=== PATIENT | male | born 2000 | race Caucasian/White ===

== ENCOUNTER 2021-10-30 11:54 | Emergency (ER) | payer BC, SELFPAY ==
[2021-10-30 12:14] VITALS: PULSE 95; RESP 16; TEMP 38.3; O2SAT 100
--- NOTE | 2021-10-30 12:26 | ED.GENADULT ---
HPI - General Adult General Chief complaint: Upper Respiratory Infection Stated complaint: runny nose/tired/cough/fever/body aches Source: patient Mode of arrival: ambulatory Limitations: no limitations History of Present Illness HPI narrative: Patient presents for evaluation of sick symptoms since 1900 last night. Symptoms include fever, chills, nausea, diarrhea, sore throat, headache, productive cough of yellow sputum and shortness of breath. SOB has improved since time of symptom onset. Denies vomiting. He took some ibuprofen to assist with his headache. He states headache has improved since that time. He has received his COVID vaccinations. A female friend with whom he recently spent time, is going in for COVID testing today as she has similar symptoms. He does not smoke. No additional complaints or concerns. Related Data Home Medications Medication Instructions Recorded Confirmed fexofenadine [Leona] 180 mg PO DAILY 10/30/21 10/30/21 fluticasone propionate [Flonase] 1 spray INTRANASAL DAILY 10/30/21 10/30/21 Allergies Allergy/AdvReac Type Severity Reaction Status Date / Time No Known Allergies Allergy Verified 10/30/21 12:12 Review of Systems Review of Systems: CONSTITUTIONAL: Reports fever and chills EYES: Denies visual changes, redness, or discharge. ENT: Reports sinus congestion/drainage and sore throat. CARDIOVASCULAR: Denies chest pain, palpitations, or edema. RESPIRATORY: Reports productive cough of yellow sputum with shortness of breath, that is improving GASTROINTESTINAL: Reports nausea and diarrhea. Denies vomiting GENITOURINARY: Denies dysuria or hematuria. SKIN: Denies rash or itching. MUSCULOSKELETAL: Reports generalized body aches NEUROLOGIC: Reports headache. Denies weakness PSYCHIATRIC: Denies anxiety or depression. [facility] Past Medical History Medical History (Updated 10/30/21 @ 12:47 by Artis Lea, VLADIMIR, SUN) Asthma Surgical History Surgical History History of sinus surgery Family History Family History Mother No pertinent past medical history Social History Social History Substance use: never Living arrangements: with roommate(s) Occupation/Education: student Additional occupation/education comments: studying nursing Gender identity (if verbalized by the patient): Male Spiritual care concerns: No Exam Narrative: GENERAL: Well-appearing, well-nourished, and in no acute distress. HEAD: Normocephalic, atraumatic. EYES: PERRLA and EOMI. ENT: Nares clear, no rhinorrhea or epistaxis. Mucous membranes moist. Oropharynx without tonsillar hypertrophy exudate or other lesions. Ear canals ceruminous. Bilateral TMs pearly johnson nonbulging NECK: Supple. No adenopathy or masses. No carotid bruits or JVD CHEST: Clear to auscultation. Cough present on exam. No respiratory distress. No wheezes rales or rhonchi HEART: Regular rate and rhythm. No murmur heard. Normal peripheral pulses. ABDOMEN: Soft, nontender, nondistended, normal active bowel sounds. EXTREMITIES: Normal range of motion. No edema. SKIN: Warm, dry, no rash. NEURO: No focal deficits. Alert and oriented x3. PSYCH: Normal mood and affect. Course Course Emergency Course: This is a 21-year-old male who presented with complaints of sick symptoms. Strep and influenza were negative. COVID-positive. Saturations 100% on room air. Patient nontoxic-appearing. Advised quarantine and alignment with CDC guidelines, symptomatic management with OTC agents and will add zofran for nausea. Encouraged to follow up outpatient for further evaluation and go to ER for worsening symptoms or SOB. Pt in agreement with plan of care. Level of Care: Express Care Visit Vital Signs Vital signs: Vital Signs Temperature 38.3 C H 10/30/21 12:
--- NOTE | 2021-10-30 14:25 | PC.NURSE ---
1230 Specimens collected for Flu, Covid and Strep.
== END 2021-10-30 13:00 | disposition home or self-care (01) ==
PROVIDERS: Emergency Provider Nurse Practitioner
DX: U07.1 COVID-19 (principal); J45.909 Unspecified asthma, uncomplicated
CPT/HCPCS: 87081; 87426; 87804; 87880; 99213; C9803; G0463